=== PATIENT | female | born 1995 | race Caucasian/White ===

== ENCOUNTER 2019-05-06 21:14 | Emergency (ER) | payer OTHER ==
[~2019-05-06] VITALS: Ht 170.2 cm; Wt 91.0 kg
[2019-05-07] MEDS ORDERED: ACETAMINOPHEN 325MG TABLET PO ONE (00:30)
[2019-05-07] MEDS ORDERED: LIDOCAINE HCL/EPINEPHRINE 1%-EPI 1:100,000 20 ML VIAL INFIL ONE (00:30)
[2019-05-07 01:10] VITALS: BP 113/63
== END 2019-05-07 01:17 | disposition home or self-care (01) ==
LOC: ER 23:10
DX: L02.415 Cutaneous abscess of right lower limb (principal); L03.115 Cellulitis of right lower limb
CPT/HCPCS: 10060; 99283; J3490